=== PATIENT | male | born 1990 | race African-American/Black ===

== ENCOUNTER 2021-04-30 12:31 | Emergency (ER) | payer OTHER ==
[~2021-04-30] VITALS: Ht 190.5 cm; Wt 131.5 kg
== END 2021-04-30 16:57 | disposition home or self-care (01) ==
LOC: ED 12:31
DX: S76.101A Unspecified injury of right quadriceps muscle, fascia and tendon, initial encounter (principal); M23.91 Unspecified internal derangement of right knee; W01.0XXA Fall on same level from slipping, tripping and stumbling without subsequent striking against object, initial encounter; Y93.89 Activity, other specified; Y92.89 Other specified places as the place of occurrence of the external cause; Y99.8 Other external cause status

== ENCOUNTER → 2021-05-09 | Day surgery (SDC) | payer OTHER ==
[2021-05-06 13:29] VITALS: BP 145/109
[2021-05-06 14:19] LABS: BUN 14 mg/dl (7-24); CHLORIDE 109 mmol/L (98-107); CREATININE 1.09 mg/dL (0.70-1.30); POTASSIUM 3.8 mmol/L (3.5-5.1); SODIUM 140 mmol/L (136-145)
[~2021-05-09] VITALS: Ht 190.5 cm; Wt 210.5 kg
[2021-05-09 06:30] VITALS: BP 154/75
[2021-05-09 10:05] VITALS: BP 145/90
[2021-05-09 10:20] VITALS: BP 160/100
[2021-05-09 10:35] VITALS: BP 148/88
[2021-05-09 10:48] VITALS: BP 132/82
== END | disposition home or self-care (01) ==
LOC: SDC 05-06 12:30
PROVIDERS: ATTEND Orthopaedic Surgery
DX: S76.111A Strain of right quadriceps muscle, fascia and tendon, initial encounter (principal); E66.01 Morbid (severe) obesity due to excess calories; Z20.822 Contact with and (suspected) exposure to COVID-19; Z68.43 Body mass index [BMI] 50.0-59.9, adult; W19.XXXA Unspecified fall, initial encounter; Y93.89 Activity, other specified; Y92.89 Other specified places as the place of occurrence of the external cause; Y99.8 Other external cause status